=== PATIENT | female | born 1940 | race Caucasian/White ===

== ENCOUNTER 2016-12-23 14:06 | Emergency (ER) | payer OTHER, MEDICAID ==
[~2016-12-23] VITALS: Ht 157.5 cm; Wt 55.0 kg
[~2016-12-23 14:06] MED LIST: ASPI81TA45 PO; ATOR10 PO; HYDR-2768 PO; LISI-357 PO; POTA25TA4 PO
[2016-12-23] MEDS ORDERED: IOHEXOL 350 MG/ML 10 ML VIAL (for RAD DIAG) IVCONTRAST ONE (14:07)
[2016-12-23 14:15] VITALS: BP 132/60; PULSE 64; RESP 20; TEMP 97.6; O2SAT 98
[2016-12-23] MEDS ORDERED: ASPI81TA23 PO (14:21)
[2016-12-23] MEDS ORDERED: LISI10TA PO (14:21)
[2016-12-23] MEDS ORDERED: SODIUM CHLOR 0.9% 1000 ML INJ 1,000 ML IV ONE (14:24)
[2016-12-23] MEDS ORDERED: SODIUM CHLORIDE 0.9% FLUSH 10 ML FLUSH IVF PRN (14:30)
[2016-12-23] MEDS ORDERED: ONDANSETRON HCL 4 MG/2 ML VIAL IVP ONE (14:30)
[2016-12-23] MEDS ORDERED: PROMETHAZINE INJ 25 MG/ML VIAL IM ONE (15:00)
--- NOTE | 2016-12-23 15:19 | RADRPT ---
EXAM DATE/TIME: 12/23/2016 14:48 [facility] COMPARISON: CHEST SINGLE AP, November 08, 2013, 7:36. INDICATIONS : Syncope. Patient states she was eating lunch and started feeling nausea, light headed, then she passe d out. MEDICAL HISTORY : None. SURGICAL HISTORY : None. ENCOUNTER: Initial ACUITY: 1 day PAIN SCORE: 0/10 LOCATION: Bilateral chest FINDINGS: A single view of the chest demonstrates the lungs to be symmetrically aerated without evidence of mas s, infiltrate or effusion. The cardiomediastinal contours are unremarkable. Osseous structures are intact. CONCLUSION: 1. No acute cardiopulmonary findings identified. Isaiah Frances MD on December 23, 2016 at 15:17 Board Certified Radiologist. This report was verified electronically.
[2016-12-23 15:40] LABS: AUTOMATED NEUTROPHIL # 3.2 TH/MM3 (1.8-7.7); BASOPHIL # 0.1 TH/MM3 (0-0.2); BASOPHIL % 1.1 % (0.0-2.0); EOSINOPHIL # 0.1 TH/MM3 (0-0.4); EOSINOPHIL % 1.7 % (0.0-4.0); HEMATOCRIT 40.5 % (35.0-46.0); HEMO FLAGS DIFF FINAL; LYMPH % 38.2 % (9.0-44.0); LYMPHOCYTE # 2.4 TH/MM3 (1.0-4.8); MEAN CELL VOLUME 90.2 FL (80.0-100.0); MEAN CORPUSCULAR HEMOGLOBIN 30.2 PG (27.0-34.0); MEAN CORPUSCULAR HGB CONC 33.5 % (32.0-36.0); MONO % 7.5 % (0.0-8.0); NEUT % 51.5 % (16.0-70.0); PLATELET COUNT 336 TH/MM3 (150-450); RED BLOOD COUNT 4.49 MIL/MM3 (4.00-5.30); RED CELL DISTRIBUTION WIDTH 12.9 % (11.6-17.2); WHITE BLOOD COUNT 6.2 TH/MM3 (4.0-11.0)
[2016-12-23 15:48] LABS: APTT (PATIENT) 21.6 SEC (24.3-30.1); INTERNATIONAL NORMALIZED RATIO 0.9 RATIO; PROTHROMBIN TIME - PATIENT 10.3 SEC (9.8-11.6)
[2016-12-23 15:59] LABS: ANION GAP 8 MEQ/L (5-15); BICARBONATE 24.8 MEQ/L (21.0-32.0); BLOOD UREA NITROGEN 11 MG/DL (7-18); CHLORIDE 108 MEQ/L (98-107); GLOMERULAR FILTRATION RATE 63 ML/MIN (>89); MAGNESIUM 2.4 MG/DL (1.5-2.5); POTASSIUM 3.2 MEQ/L (3.5-5.1); SODIUM (NA) 141 MEQ/L (136-145)
[2016-12-23 16:02] LABS: CREATINE KINASE 114 U/L (26-192)
[2016-12-23 16:14] LABS: CKMB 1.3 NG/ML (0.5-3.6)
[2016-12-23] MEDS ORDERED: POTASSIUM CHLORIDE 20 MEQ CONTROLLED RELEASE TAB PO ONE (16:15)
--- NOTE | 2016-12-23 16:45 | RADRPT ---
EXAM DATE/TIME: 12/23/2016 16:32 [facility] COMPARISON: No previous studies available for comparison. INDICATIONS : Syncopal episode. RADIATION DOSE: 56.35 CTDIvol (mGy) MEDICAL HISTORY : Hypertension. SURGICAL HISTORY : Appendectomy. Hysterectomy. ENCOUNTER: Initial ACUITY: 1 day PAIN SCALE: 0/10 LOCATION: cranial TECHNIQUE: Multiple contiguous axial images were obtained of the head. Using automated exposure control and adj ustment of the mA and/or kV according to patient size, radiation dose was kept as low as reasonably a chievable to obtain optimal diagnostic quality images. DICOM format image data is available electro nically for review and comparison. FINDINGS: CEREBRUM: The ventricles are normal for age. No evidence of midline shift, mass lesion, hemorrhage or acute in farction. No extra-axial fluid collections are seen. POSTERIOR FOSSA: The cerebellum and brainstem are intact. The 4th ventricle is midline. The cerebellopontine angle i s unremarkable. EXTRACRANIAL: The visualized portion of the orbits is intact. SKULL: The calvaria is intact. No evidence of skull fracture. CONCLUSION: 1. No acute intracranial abnormality. Isaiah Frances MD on December 23, 2016 at 16:42 Board Certified Radiologist. This report was verified electronically.
--- NOTE | 2016-12-23 16:51 | RADRPT ---
EXAM DATE/TIME: 12/23/2016 16:35 [facility] COMPARISON: CT BRAIN W/O CONTRAST, December 23, 2016, 16:32. INDICATIONS : Shortness of breath; syncopal episode. IV CONTRAST: 75 cc Omnipaque 350 (iohexol) IV RADIATION DOSE: 23.19 CTDIvol (mGy) MEDICAL HISTORY : Hypertension. SURGICAL HISTORY : Appendectomy. Hysterectomy. ENCOUNTER: Initial ACUITY: 1 day PAIN SCALE: 0/10 LOCATION: Bilateral chest TECHNIQUE: Volumetric scanning of the chest was performed using a pulmonary embolism protocol MIP images were re constructed. Using automated exposure control and adjustment of the mA and/or kV according to patien t size, radiation dose was kept as low as reasonably achievable to obtain optimal diagnostic quality images. DICOM format image data is available electronically for review and comparison. Follow-up recommendations for detected pulmonary nodules are based at a minimum on nodule size and pa tient risk factors according to Fleischner Society Guidelines. FINDINGS: PULMONARY ARTERIES: No filling defects are seen in the pulmonary arteries through the segmental level. LUNGS: There mild atelectatic changes in the lung bases. The lungs are otherwise clear. PLEURAE: There is no pleural thickening or pleural effusion. MEDIASTINUM: There is good visualization of the great vessels of the middle mediastinum. No evidence of mediastin al or hilar adenopathy/mass. There is atherosclerotic plaquing in the coronary arteries. MUSCULOSKELETAL: There are degenerative changes within the thoracic spine. MISCELLANEOUS: The visualized upper abdominal organs demonstrate no acute abnormality. CONCLUSION: 1. Mild atelectatic changes in the lung bases. 2. No pulmonary embolus identified. Isaiah Frances MD on December 23, 2016 at 16:45 Board Certified Radiologist. This report was verified electronically.
[2016-12-23 16:59] VITALS: BP_SYST 137; BP_SYST 151; BP_DIAS 63; BP_DIAS 68
--- NOTE | 2016-12-23 17:10 | PD ---
HPI Chief Complaint: Syncope/Near-Syncope Time Seen by Provider: 14:24 Travel History International Travel<30 days: No Contact w/Intl Traveler<30days: No Traveled to known affect area: No History of Present Illness HPI 76 yo F c/o syncope while eating, followed by lightheadedness and vomiting. Diaphoresis also noted. In ED primary complaint is nausea. No fever or chest pain. No shortness of breath. Similar episode occurred approx 2 years prior with hypokalemia. No new or different medication. No change in medication. Pt reports feeling well over past weeks. PFSH Past Medical History Cardiovascular Problems: Yes High Cholesterol: Yes Hypertension: Yes Past Surgical History Appendectomy: Yes Hysterectomy: Yes Other Surgery: Yes (LUMPECTOMY) Social History Alcohol Use: No Tobacco Use: No Substance Use: No Allergies-Medications (Allergen,Severity, Reaction): Coded Allergies: amoxicillin (Unverified Allergy, Severe, 12/23/16) Reported Meds & Prescriptions Reported Meds & Active Scripts Active Reported Lisinopril-Hctz 10-12.5 Mg Tab 1 Tab PO DAILY Aspirin EC (Aspirin) 81 Mg Tabdr 81 Mg PO DAILY Review of Systems Except as stated in HPI: all other systems reviewed are Neg General / Constitutional: No: Fever Physical Exam Narrative GENERAL: 76 yo F, moderate respiratory distress SKIN: Warm and dry. HEAD: Atraumatic. Normocephalic. EYES: Pupils equal and round. No scleral icterus. No injection or drainage. ENT: No nasal bleeding or discharge. Mucous membranes pink and moist. NECK: Trachea midline. No JVD. CARDIOVASCULAR: Regular rate and rhythm. RESPIRATORY: Minimal wheezing bilaterally. Minimal tachypnea. GASTROINTESTINAL: Abdomen soft, non-tender, nondistended. Hepatic and splenic margins not palpable. MUSCULOSKELETAL: Extremities without clubbing, cyanosis, or edema. No obvious deformities. NEUROLOGICAL: GCS 15. Pt answers questions however does not speak in sentences. Moving all extremities. PSYCHIATRIC: Appropriate mood and affect; insight and judgment normal. Data Data Last Documented VS Vital Signs Date Time Temp Pulse Resp B/P (MAP) Pulse Ox O2 Delivery O2 Flow Rate FiO2 12/23/16 18:16 12/23/16 14:15 97.6 64 20 98 Room Air VS reviewed Orders Orders Electrocardiogram (12/23/16 14:24) Basic Metabolic Panel (Bmp) (12/23/16 14:24) Complete Blood Count With Diff (12/23/16 14:24) Magnesium (Mg) (12/23/16 14:24) Ckmb (Isoenzyme) Profile (12/23/16 14:24) Troponin I (12/23/16 14:24) Act Partial Throm Time (Ptt) (12/23/16 14:24) Prothrombin Time / Inr (Pt) (12/23/16 14:24) Urinalysis - C+S If Indicated (12/23/16 14:24) Chest, Single Ap (12/23/16 14:24) Blood Glucose (12/23/16 14:24) Ecg Monitoring (12/23/16 14:24) Iv Access Insert/Monitor (12/23/16 14:24) Oximetry (12/23/16 14:24) Ondansetron Inj (Zofran Inj) (12/23/16 14:30) Sodium Chloride 0.9% Flush (Ns Flush) (12/23/16 14:30) Sodium Chlor 0.9% 1000 Ml Inj (Ns 1000 M (12/23/16 14:24) Orthostatic Vital Signs (12/23/16 14:24) Ct Pulmonary Angiogram (12/23/16 14:24) Promethazine Inj (Phenergan Inj) (12/23/16 15:00) CKMB (12/23/16 14:40) CKMB% (12/23/16 14:40) Potassium Chloride (Kcl) (12/23/16 16:15) Ct Brain W/O Iv Contrast(Rout) (12/23/16 16:13) Iohexol 350 Inj (Omnipaque 350 Inj) (12/23/16 14:07) Labs Laboratory Tests Test 12/23/16 14:40 12/23/16 16:59 White Blood Count 6.2 TH/MM3 Red Blood Count 4.49 MIL/MM3 Hemoglobin 13.5 GM/DL Hematocrit 40.5 % Mean Corpuscular Volume 90.2 FL Mean Corpuscular Hemoglobin 30.2 PG Mean Corpuscular Hemoglobin Concent 33.5 % Red Cell Distribution Width 12.9 % Platelet Count 336 TH/MM3 Mean Platelet Volume 7.9 FL Neutrophils (%) (Auto) 51.5 % Lymphocytes (%) (Auto) 38.2 % Monocytes (%) (Auto) 7.5 % Eosinophils (%) (Auto) 1.7 % Basophils (%) (Auto) 1.1 % Neutrophils # (Auto) 3.2 TH/MM3 Lymphocytes # (Auto) 2.4 TH/MM3 Monocytes # (Auto) 0.5 TH/MM3 Eosinophils # (Auto) 0.1 TH/MM3 Basophils # (Auto) 0.1 TH/MM3 CBC Comment DIFF FINAL Differential Comment Prothrombin Time 10.3 SEC Prothromb Time International Ratio 0.9 RATIO Activated Partial Thromboplast Time 21.6 SEC Blood Urea Nitrogen 11 MG/DL Creatinine 0.88 MG/DL Random Glucose 116 MG/DL Calcium Level 9.3 MG/DL Magnesium Level 2.4 MG/DL Sodium Level 141 MEQ/L Potassium Level 3.2 MEQ/L Chloride Level 108 MEQ/L Carbon Dioxide Level 24.8 MEQ/L Anion Gap 8 MEQ/L Estimat Glomerular Filtration Rate 63 ML/MIN Total Creatine Kinase 114 U/L Creatine Kinase MB 1.3 NG/ML Troponin I LESS THAN 0.02 NG/ML Urine Color LIGHT-YELLOW Urine Turbidity CLEAR Urine pH 7.0 Urine Specific Hanna 1.018 Urine Protein NEG mg/dL Urine Glucose (UA) NEG mg/dL Urine Ketones 10 mg/dL Urine Occult Blood NEG Urine Nitrite NEG Urine Bilirubin NEG Urine Urobilinogen LESS THAN 2.0 MG/DL Urine Leukocyte Esterase NEG Urine RBC 1 /hpf Urine WBC LESS THAN 1 /hpf Microscopic Urinalysis Comment CULT NOT INDICATED MDM Medical Decision Making Medical Screen Exam Complete: Yes Emergency Medical Condition: Yes Differential Diagnosis pna, hypercapnic respiratory distress, hypoxia, anemia, renal failure, Narrative Course CBC & BMP Diagram 12/23/16 14:40 Calcium Level 9.3, Magnesium Level 2.4 Tn < 0.02 UA: no UTI INR 0.9 PTT 21.6 EKG sinus rate 61 normal axis/intervals; no pre-excitation morphology The patient is resting comfortably and feels better, is alert and in no distress. The patients results and examination findings were discussed. The repeat examination is unremarkable and benign. The history, exam, diagnostic testing, and current condition do not suggest any significant pathology to warrant further testing, continued ED treatment, admission, or surgical evaluation at this point. The vital signs have been stable. The patient does not have uncontrollable pain, intractable vomiting, or other significant symptoms. The patient's condition is stable and appropriate for discharge. The patient will pursue further outpatient evaluation with a primary care physician or other designated or consulting physician as indicated in the discharge instructions. The patient expressed understanding and was agreeable with this plan. Diagnosis Primary Impression: Syncope Qualified Codes: R55 - Syncope and collapse Additional Impression: Vomiting Qualified Codes: R11.10 - Vomiting, unspecified Referrals: Primary Care Physician 2 days Additional Instructions: You have a choice when it comes to health care, and we are glad that you chose [facility]. Hopefully, we have met your expectations on today's visit. You are welcome to return to [facility] at any time, as we are committed to meeting the health care needs of our community. Med/Other Pt SpecificInfo: No Change to Meds Disposition: 01 DISCHARGE HOME Condition: Isaiah Cuello MD Dec 23, 2016 17:10
[2016-12-23 17:44] LABS: BLOOD, URINE NEG (NEG); COMMENT (UR) CULT NOT INDICATED; CULTURE IF INDICATED CULT NOT INDICATED; GLUCOSE,URINE NEG (NEG); KETONE, URINE 10 mg/dL (NEG); NITRITE,URINE NEG (NEG); URINE COLOR LIGHT-YELLOW (YELLW/STRAW)
--- NOTE | 2016-12-24 15:17 | EKG ---
Date Performed: 12/23/2016 Time Performed: 15:11:57 PTAGE: 76 years EKG: Sinus rhythm NORMAL ECG Compared to prior tracing no significant change DOCTOR: Vargas Adan Interpretating Date/Time 12/24/2016 15:17:03
== END 2016-12-23 18:30 | disposition home or self-care (01) ==
LOC: NEPC 14:06
DX: R55 Syncope and collapse (principal); R11.10 Vomiting, unspecified; I10 Essential (primary) hypertension; E78.00 Pure hypercholesterolemia, unspecified
CPT/HCPCS: 70450; 71010; 71275; 80048; 81001; 82550; 82552; 83735; 84484; 85025; 85610; 85730; 93005; 96361; 96372; 96374; 99285; J2405; J2550; J7030; Q9967